=== PATIENT | female | born 1995 | race Asian ===

== ENCOUNTER 2017-02-26 20:06 | Emergency (ER) | payer BC ==
[~2017-02-26] VITALS: Ht 157.5 cm; Wt 54.4 kg
[2017-02-26 20:06] VITALS: BP_SYST 123
[2017-02-26] MEDS ORDERED: DIPH-TET-PERTUS Vaccine 0.5 ML VIAL (ADACEL) IM ONE (20:30)
[2017-02-26] MEDS ORDERED: IBUPROFEN 800 MG TABLET PO ONE (20:30)
[2017-02-26] MEDS ORDERED: BACITRACIN 1 GM OINT TP ONE (20:30)
[2017-02-26] MEDS ORDERED: LIDOCAINE 2%, 20 ML MDV IJ ONE (20:30)
== END 2017-02-26 21:49 | disposition home or self-care (01) ==
LOC: SED 20:06
DX: S61.012A Laceration without foreign body of left thumb without damage to nail, initial encounter (principal); W26.0XXA Contact with knife, initial encounter; Y93.89 Activity, other specified; Y92.090 Kitchen in other non-institutional residence as the place of occurrence of the external cause; Y99.8 Other external cause status
CPT/HCPCS: 12001; 90471; 90715; 99283; J2001